=== PATIENT | male | born 1990 | race Native Hawaiian/Other Pacific Islander ===

== ENCOUNTER 2017-12-05 11:04 | Outpatient (CLI) | payer OTHER | END 2017-12-05 20:46 | disposition home or self-care (01) | LOC: RAD 11:04 | DX: S21.141A Puncture wound with foreign body of right front wall of thorax without penetration into thoracic cavity, initial encounter (principal) ==

== ENCOUNTER 2020-04-13 18:09 | Emergency (ER) | payer OTHER ==
[~2020-04-13] VITALS: Ht 175.3 cm; Wt 74.8 kg
[2020-04-13 19:03] LABS: PLATELET COUNT 209 K/uL (142-355)
[2020-04-13 19:15] LABS: POTASSIUM 3.8 mmol/L (3.6-5.2)
[2020-04-13 20:27] VITALS: BP 115/64; TEMP 98.4
== END 2020-04-13 20:28 | disposition home or self-care (01) ==
LOC: ED 18:09
PROVIDERS: Emergency Medicine Emergency Medical Services
DX: B34.9 Viral infection, unspecified (principal); Z20.828 Contact with and (suspected) exposure to other viral communicable diseases
CPT/HCPCS: 36415; 80053; 85027; 87635; 96360; 96365; 96374; 96375; 99284; J1885; J2405; U0003

== ENCOUNTER 2021-01-05 12:10 | Emergency (ER) | payer OTHER ==
[~2021-01-05] VITALS: Ht 175.3 cm; Wt 79.4 kg
[2021-01-05 12:15] VITALS: BP 118/71; TEMP 99
== END 2021-01-05 14:08 | disposition home or self-care (01) ==
LOC: ED 12:10
PROC: 2W3QX1Z Immobilization of Right Lower Leg using Splint (ICD-10-PCS; principal; 2021-01-05)
DX: S92.424A Nondisplaced fracture of distal phalanx of right great toe, initial encounter for closed fracture (principal); S60.221A Contusion of right hand, initial encounter; W22.8XXA Striking against or struck by other objects, initial encounter; W22.09XA Striking against other stationary object, initial encounter; Y92.89 Other specified places as the place of occurrence of the external cause
CPT/HCPCS: 99283

== ENCOUNTER 2021-04-24 14:37 | Emergency (ER) | payer OTHER ==
[~2021-04-24] VITALS: Ht 175.3 cm; Wt 79.4 kg
[2021-04-24 15:20] LABS: PLATELET COUNT 312 K/uL (142-355)
[2021-04-24 15:28] LABS: POTASSIUM 3.4 mmol/L (3.6-5.2); SODIUM 140 mmol/L (136-145)
[2021-04-24 18:30] VITALS: BP 123/69; TEMP 98.1
== END 2021-04-24 18:30 | disposition home or self-care (01) ==
LOC: ED 14:37
PROVIDERS: Emergency Medicine Emergency Medical Services
DX: J20.9 Acute bronchitis, unspecified (principal); R09.1 Pleurisy; Z20.822 Contact with and (suspected) exposure to COVID-19
CPT/HCPCS: 36415; 80048; 84484; 85027; 85379; 85610; 87502; 87635; 93005; 96360; 96365; 96366; 96375; 99284; J1885; J1956; J2270; J2930; Q9963; U0003

== ENCOUNTER 2022-12-08 21:38 | Emergency (ER) | payer BC ==
[~2022-12-08] VITALS: Ht 175.3 cm; Wt 77.1 kg
[2022-12-08 22:48] LABS: PLATELET COUNT 234 K/uL (142-355)
[2022-12-08 22:58] LABS: POTASSIUM 3.5 mmol/L (3.6-5.2)
[2022-12-09 07:25] VITALS: TEMP 101.6
[2022-12-09 08:40] VITALS: BP 101/52
== END 2022-12-09 08:43 | disposition short-term general hospital (02) ==
LOC: ED 21:38
PROVIDERS: Emergency Medicine Emergency Medical Services
DX: K04.7 Periapical abscess without sinus (principal); L03.211 Cellulitis of face; F17.210 Nicotine dependence, cigarettes, uncomplicated
CPT/HCPCS: 36415; 36600; 80053; 80202; 81002; 82150; 82805; 83605; 83690; 84484; 85027; 85610; 87040; 87502; 87635; 87651; 93005; 96361; 96365; 96366; 96375; 99284; J0696; J1885; J3370; Q9963; U0003